=== PATIENT | male | born 1955 | race Caucasian/White ===

== ENCOUNTER 2019-01-16 16:13 | Emergency (ER) | payer MEDICARE ==
[~2019-01-16] VITALS: Ht 175.3 cm; Wt 110.0 kg
[2019-01-16 16:24] VITALS: BP 138/97
== END 2019-01-16 17:56 | disposition home or self-care (01) ==
LOC: ER 16:13
DX: T23.131A Burn of first degree of multiple right fingers (nail), not including thumb, initial encounter (principal); T31.0 Burns involving less than 10% of body surface
CPT/HCPCS: 16000; 99283; 99284